=== PATIENT | female | born 1940 | race Caucasian/White ===

== ENCOUNTER 2017-12-06 07:31 | Day surgery (SDC) | payer OTHER ==
[2017-12-06] MEDS ORDERED: Lactated Ringer's 500 ML IV ONE (09:00)
[2017-12-06] MEDS ORDERED: Propofol 10 mg/ml Inj (20 ML) ONE (09:15)
[2017-12-06 10:56] VITALS: BMI 27.4
[2017-12-06 11:06] VITALS: BP 132/68; PULSE 76; RESP 14; TEMP 98.7; O2SAT 98
== END 2017-12-06 15:10 | disposition home or self-care (01) ==
LOC: H.ENDO 07:31
PROVIDERS: ATTEND Internal Medicine Gastroenterology
DX: Z12.11 Encounter for screening for malignant neoplasm of colon (principal); J45.909 Unspecified asthma, uncomplicated; I10 Essential (primary) hypertension; K57.30 Diverticulosis of large intestine without perforation or abscess without bleeding; K64.8 Other hemorrhoids; D12.0 Benign neoplasm of cecum; K30 Functional dyspepsia; K44.9 Diaphragmatic hernia without obstruction or gangrene; K31.89 Other diseases of stomach and duodenum
CPT/HCPCS: 43239; 45380; 88305; J2001; J2704; J7120